=== PATIENT | male | born 1975 | race Hispanic/Latino ===

== ENCOUNTER 2018-07-29 23:48 | Emergency (ER) | payer SELFPAY ==
[2018-07-30 00:29] LABS: Absolute Lymphocytes (CBC) 1.7 K/uL (0.7-4.9); Absolute Monocytes 0.6 K/uL (0.1-1.3); Absolute Neutrophil 5.9 K/uL (1.8-8.0); Basophils % 0.6 % (0-1.3); Eosinophils % 3.2 % (0-4.4); Hematocrit 42.6 % (39.6-49.0); Lymphocytes % 19.4 % (15.3-44.8); MCH 33.3 pg (27.0-35.0); MCV 95.2 fL (80-100); Monocytes % 7.3 % (3.3-12.3); RBC Red Blood Cell Count 4.47 M/uL (4.33-5.43)
[2018-07-30] MEDS ORDERED: NA CHLORIDE 0.9% 1,000 ML ONE ×2 (00:32→02:35)
[2018-07-30] MEDS ORDERED: ONDANSETRON 4 MG/2 ML VIAL ONE (00:32)
[2018-07-30] MEDS ORDERED: MORPHINE 4 MG/ML SYR ONE (00:32)
[2018-07-30 00:45] LABS: Protime INR 1.01
[2018-07-30 00:49] LABS: BUN Blood Urea Nitrogen 16 mg/dL (7-18); Bicarbonate 23 mmol/L (21-32); Glucose Level 126 mg/dL (74-106); Sodium Level 140 mmol/L (136-145); Troponin I < 0.02 ng/mL (0.0-0.045)
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
[2018-07-30] MEDS ORDERED: CYCLOBENZAPRINE 10 MG TAB ONE (03:28)
[2018-07-30] MEDS ORDERED: HYDROCODONE/APAP 7.5/325 MG TAB ONE (03:29)
--- NOTE | 2018-07-30 10:22 | EKG ---
Test Date: 2018-07-30 Test Time: 00:41:22 Computer Numerical Control Programmer: LAILA MEASUREMENT RESULTS: Intervals: Rate: 85 RI: 144 QRSD: 94 QT: 412 QTc: 490 [place]: P: 61 RI: 144 QRS: 50 T: 69 INTERPRETIVE STATEMENTS: Normal sinus rhythm Prolonged QT Abnormal ECG No previous ECG available for comparison Electronically Signed On 07-30-18 10:21:17 CDT by Doroteo Guillory
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
== END 2018-07-30 03:59 | disposition home or self-care (01) ==
LOC: ER 23:48
DX: M25.532 Pain in left wrist (principal); M25.562 Pain in left knee; V49.59XA Passenger injured in collision with other motor vehicles in traffic accident, initial encounter; Z79.4 Long term (current) use of insulin; I10 Essential (primary) hypertension; E78.00 Pure hypercholesterolemia, unspecified; E11.9 Type 2 diabetes mellitus without complications; F17.210 Nicotine dependence, cigarettes, uncomplicated
CPT/HCPCS: 36415; 70450; 71045; 71250; 72125; 72170; 80048; 84484; 85025; 85610; 85730; 86850; 86900; 86901; 93005; 96361; 96374; 96375; 99285; J2405; J7030

== ENCOUNTER 2018-08-22 10:38 | Emergency (ER) | payer OTHER, SELFPAY ==
[2018-08-22] MEDS ORDERED: HYDROCODONE/APAP 7.5/325 MG TAB ONE (11:31)
[2018-08-22] MEDS ORDERED: IBUPROFEN 400 MG TAB ONE (11:31)
--- NOTE | 2018-08-22 11:51 | RAD REPORT ---
EXAM DESCRIPTION: RAD - Ankle Left 3 View - 08/22/2018 11:39 am CLINICAL HISTORY: Pain;Swelling COMPARISON: No comparisons FINDINGS: Prominent soft tissue swelling is seen about the ankle. No fracture or dislocation is seen . Small calcaneal spurs are present.
[2018-08-22] MEDS ORDERED: AMLODIPINE 5 MG TAB ONE (12:49)
[2018-08-22] MEDS ORDERED: cloNIDine HCl 0.1 MG TAB ONE (12:49)
--- NOTE | 2018-08-22 13:37 | ER ---
Nurse's Notes [facility] Name: Jean Pierre Anguiano Age: 43 yrs Sex: Male : 1975 Arrival Date: 08/22/2018 Time: 10:41 Bed 9 Private MD: None, None Diagnosis: Pain in left ankle and joints of left foot;Hypertensive heart disease Presentation: 08/22 10:48 Presenting complaint: Patient states: Left ankle pain since yesterday morning at 1000, jl7 denies trauma. Transition of care: patient was not received from another setting of care. Onset of symptoms was August 21, 2018. Risk Assessment: Do you want to hurt yourself or someone else? Patient reports no desire to harm self or others. Initial Sepsis Screen: Does the patient meet any 2 criteria? No. Patient's initial sepsis screen is negative. Does the patient have a suspected source of infection? No. Patient's initial sepsis screen is negative. Care prior to arrival: None. 10:48 Method Of Arrival: Wheelchair jl7 10:48 Acuity: AUBREY 3 jl7 Historical: - Allergies: 10:49 No Known Allergies; jl7 - PMHx: 10:49 Diabetes - NIDDM; High Cholesterol; Hypertension; Sleep Apnea; stroke; jl7 - PSHx: 10:49 None; jl7 - Immunization history:: Adult Immunizations not up to date. - Social history:: Smoking status: Patient uses tobacco products, smokes one-half pack cigarettes per day. - Ebola Screening: : No symptoms or risks identified at this time. Screenin:59 Abuse screen: Denies threats or abuse. Denies injuries from another. Nutritional iw screening: No deficits noted. Tuberculosis screening: No symptoms or risk factors identified. Fall Risk None identified. Assessment: 10:58 General: Appears in no apparent distress. comfortable, Behavior is calm, cooperative. iw Pain: Complains of pain in left medial ankle. Neuro: Level of Consciousness is awake, alert, obeys commands, Oriented to person, place, time, situation, Moves all extremities. Full function. Cardiovascular: Patient's skin is warm and dry. Respiratory: Respiratory effort is even, unlabored. GI: Abdomen is flat, non-distended. Derm: Skin is intact, is healthy with good turgor. Musculoskeletal: Range of motion: limited in left ankle Swelling present in left lateral ankle. 13:00 Reassessment: Patient appears in no apparent distress at this time. Patient and/or iw family updated on plan of care and expected duration. Pain level reassessed. Patient is alert, oriented x 3, equal unlabored respirations, skin warm/dry/pink. Vital Signs: 10:49 BP 176 / 124; Pulse 98; Resp 18 S; Temp 98.7(O); Pulse Ox 98% on R/A; Weight 95.25 kg jl7 (R); Height 5 ft. 6 in. (167.64 cm) (R); Pain 10/10; 12:26 BP 176 / 122; Pulse 97; Resp 18; Pulse Ox 98% on R/A; mh5 13:35 BP 169 / 98; Pulse 87; Resp 16; Pulse Ox 100% on R/A; iw 10:49 Body Mass Index 33.89 (95.25 kg, 167.64 cm) jl7 ED Course: 10:41 Patient arrived in ED. sb2 10:41 None, None is Private Physician. sb2 10:49 Triage completed. jl7 10:49 Arm band placed on right wrist. jl7 10:55 Kamaljit Ndiaye, RN is Primary Nurse. jl7 10:57 Primo Velazquez PA is PHCP. cp 10:57 Primo Clements MD is Attending Physician. cp 11:06 Angela Fall, EMMANUELLE is Primary Nurse. iw 11:06 Patient has correct armband on for positive identification. iw 11:37 X-ray completed. Portable x-ray completed in exam room. Patient tolerated procedure ag1 well. 11:39 XRAY Ankle LEFT 3 view In Process Unspecified. EDMS 12:32 Crutch training done. Silverio wrap to left ankle. mh5 13:52 No provider procedures requiring assistance completed. Patient did not have IV access iw during this emergency room visit. Administered Medications: 11:17 CANCELLED (Physician Discretion): Hydrocodone-Acetaminophen (7.5 mg-325 mg) 1 tabs PO cp once 11:25 Drug: Ibuprofen 800 mg Route: PO; iw 12:30 Follow up: Response: No adverse reaction; Pain is decreased iw 11:25 Drug: Hydrocodone-Acetaminophen (7.5 mg-325 mg) 1 tabs Route: PO; iw 12:30 Follow up: Response: No adverse reaction; Pain is decreased iw 12:43 Drug: cloNIDine 0.1 mg Route: PO; iw 13:40 Follow up: Response: No adverse reaction iw 12:43 Drug: amLODIPine 10 mg Route: PO; iw 13:40 Follow up: Response: No adverse reaction; Blood pressure is lowered iw Outcome: 13:37 Discharge ordered by . joey 13:52 Discharged to home ambulatory, with crutches. iw 13:52 Condition: good 13:52 Discharge instructions given to patient, Instructed on discharge instructions, follow up and referral plans. medication usage, Demonstrated understanding of instructions, follow-up care, medications, Prescriptions given X 4. 13:53 Patient left the ED. iw Signatures: Dispatcher [employer] EDMS Angela Fall RN RN Aster Smith ag1 Primo Velazquez PA PA cp Martinez, Maria [facility] Kamaljit Ndiaye RN RN jl7 Lexy Man sb2
--- NOTE | 2018-08-22 13:37 | EDPHYS ---
Physician Documentation [facility] Name: Jean Pierre Anguiano Age: 43 yrs Sex: Male : 1975 Arrival Date: 08/22/2018 Time: 10:41 Bed 9 Private MD: None, None ED Physician Primo Clements HPI: 08/22 11:20 This 43 yrs old Male presents to ER via Wheelchair with complaints of Leg Pain.cp 11:20 The patient presents with pain, that is acute, swelling, tenderness. The complaints cp affect the left ankle. Historical: - Allergies: 10:49 No Known Allergies; jl7 - PMHx: 10:49 Diabetes - NIDDM; High Cholesterol; Hypertension; Sleep Apnea; stroke; jl7 - PSHx: 10:49 None; jl7 - Immunization history:: Adult Immunizations not up to date. - Social history:: Smoking status: Patient uses tobacco products, smokes one-half pack cigarettes per day. - Ebola Screening: : No symptoms or risks identified at this time. ROS: 11:30 Constitutional: Negative for body aches, chills, fever, poor PO intake. cp 11:30 Eyes: Negative for injury, pain, redness, and discharge. cp 11:30 ENT: Negative for drainage from ear(s), ear pain, sore throat, difficulty swallowing, difficulty handling secretions. 11:30 Cardiovascular: Negative for chest pain, palpitations. 11:30 Respiratory: Negative for cough, shortness of breath, wheezing. 11:30 Abdomen/GI: Negative for abdominal pain, nausea, vomiting, and diarrhea. 11:30 MS/extremity: Positive for pain, swelling, tenderness, of the left ankle, Negative for injury or acute deformity, decreased range of motion, paresthesias. 11:30 Skin: Negative for cellulitis, rash. 11:30 All other systems are negative. Exam: 11:35 Constitutional: The patient appears in no acute distress, alert, awake, cp non-diaphoretic, non-toxic, well developed, well nourished. 11:35 Head/Face: Normocephalic, atraumatic. cp 11:35 Eyes: Periorbital structures: appear normal, Conjunctiva: normal, no exudate, no injection, Sclera: no appreciated abnormality, Lids and lashes: appear normal, bilaterally. 11:35 ENT: External ear(s): are unremarkable, Nose: is normal, Mouth: Lips: moist, Oral mucosa: pink and intact, moist, Posterior pharynx: is normal, airway is patent, no erythema, no exudate. 11:35 Neck: ROM/movement: is normal, is supple, without pain, no range of motions limitations, no nuchal rigidity. 11:35 Chest/axilla: Inspection: normal, Palpation: is normal, no crepitus, no tenderness. 11:35 Cardiovascular: Rate: normal, Rhythm: regular, Edema: is not appreciated. 11:35 Respiratory: the patient does not display signs of respiratory distress, Respirations: normal, no use of accessory muscles, no retractions, no splinting, no tachypnea, labored breathing, is not present, Breath sounds: are clear throughout, no decreased breath sounds, no stridor, no wheezing. 11:35 Abdomen/GI: Exam negative for discomfort, distension, guarding, Inspection: abdomen appears normal. 11:35 Back: pain, is absent, ROM is normal. 11:35 Musculoskeletal/extremity: Joints: All joints are normal except the left ankle displays painful range of motion, swelling, tenderness, DVT Exam: No signs of deep vein thrombosis. 11:35 Skin: cellulitis, is not appreciated, no rash present. 11:35 Neuro: Orientation: to person, place \T\ time. Mentation: is normal, Cerebellar function: is grossly normal, Motor: moves all fours, strength is normal, Sensation: no obvious gross deficits. Vital Signs: 10:49 BP 176 / 124; Pulse 98; Resp 18 S; Temp 98.7(O); Pulse Ox 98% on R/A; Weight 95.25 kg jl7 (R); Height 5 ft. 6 in. (167.64 cm) (R); Pain 10/10; 12:26 BP 176 / 122; Pulse 97; Resp 18; Pulse Ox 98% on R/A; mh5 13:35 BP 169 / 98; Pulse 87; Resp 16; Pulse Ox 100% on R/A; iw 10:49 Body Mass Index 33.89 (95.25 kg, 167.64 cm) jl7 MDM: 10:58 Patient medically screened. cp 11:30 Differential diagnosis: closed fracture, gout, sprain. cp 13:36 Data reviewed: vital signs, nurses notes, radiologic studies, plain films. cp 13:36 Test interpretation: by ED physician or midlevel provider: plain radiologic studies. cp Counseling: I had a detailed discussion with the patient and/or guardian regarding: the historical points, exam findings, and any diagnostic results supporting the discharge/admit diagnosis, radiology results, the need for outpatient follow up, a family practitioner, to return to the emergency department if symptoms worsen or persist or if there are any questions or concerns that arise at home. Response to treatment: the patient's symptoms have mildly improved after treatment, and as a result, I will discharge patient. 08/22 11:16 Order name: XRAY Ankle LEFT 3 view; Complete Time: 11:54 cp 08/22 11:54 Interpretation: Report reviewed. cp 08/22 11:56 Order name: Silverio wrap-joint; Complete Time: 12:33 cp 08/22 11:56 Order name: Crutches; Complete Time: 12:33 cp 08/22 11:56 Order name: Vital Signs: please update blood pressure; Complete Time: 12:33 cp Administered Medications: 11:17 CANCELLED (Physician Discretion): Hydrocodone-Acetaminophen (7.5 mg-325 mg) 1 tabs PO cp once 11:25 Drug: Ibuprofen 800 mg Route: PO; iw 12:30 Follow up: Response: No adverse reaction; Pain is decreased iw 11:25 Drug: Hydrocodone-Acetaminophen (7.5 mg-325 mg) 1 tabs Route: PO; iw 12:30 Follow up: Response: No adverse reaction; Pain is decreased iw 12:43 Drug: cloNIDine 0.1 mg Route: PO; iw 13:40 Follow up: Response: No adverse reaction iw 12:43 Drug: amLODIPine 10 mg Route: PO; iw 13:40 Follow up: Response: No adverse reaction; Blood pressure is lowered iw Disposition: 08/22/18 13:37 Discharged to Home. Impression: Pain in left ankle and joints of left foot, Hypertensive heart disease. - Condition is Stable. - Discharge Instructions: Hypertension, How to Take Your Blood Pressure, [id number], Ankle Pain, Managing Your Hypertension. - Prescriptions for Metoprolol Tartrate 100 mg Oral Tablet - take 1 tablet by ORAL route 2 times per day with a meal; 30 tablet. amlodipine 10 mg Oral tablet - take 1 tablet by ORAL route once daily; 20 tablet. ketorolac 10 mg Oral tablet - take 1 tablet by ORAL route every 6 hours As needed for ankle pain, not to exceed 40 mg in 24hrs; 15 tablet. Tramadol 50 mg Oral Tablet - take 1 tablet by ORAL route every 8 hours as needed. no driving while taking medication; 20 tablet. - Work release form, Medication Reconciliation Form, Thank You Letter, Antibiotic Education, Prescription Opioid Use form. - Follow up: Private Physician; When: 1 - 2 days; Reason: Recheck today's complaints. - Problem is new. - Symptoms have improved. Addendum: 08/25/2018 06:37 Co-signature as Attending Physician, Primo Clements MD I agree with the assessment and c dougherty plan of care. Signatures: Dispatcher [employer] EDPrimo Schuster MD MD cha Williams, Irene, RN RN Primo Haynes PA PA Kamaljit Portillo RN RN jl7 Corrections: (The following items were deleted from the chart) 08/22 11:17 11:17 Hydrocodone-Acetaminophen (7.5 mg-325 mg) 1 tabs PO once ordered. cp cp 13:53 13:37 08/22/2018 13:37 Discharged to Home. Impression: Pain in left ankle and joints of iw left foot; Hypertensive heart disease. Condition is Stable. Prescriptions for amlodipine 10 mg Oral tablet - take 1 tablet by ORAL route once daily; 20 tablet, Metoprolol Tartrate 100 mg Oral Tablet - take 1 tablet by ORAL route 2 times per day with a meal; 30 tablet. and Forms are Medication Reconciliation Form, Thank You Letter, Antibiotic Education, Prescription Opioid Use. Follow up: Private Physician; When: 1 - 2 days; Reason: Recheck today's complaints. Problem is new. Symptoms have improved. cp
== END 2018-08-22 13:53 | disposition home or self-care (01) ==
LOC: ER 10:38
DX: M25.572 Pain in left ankle and joints of left foot (principal); I11.9 Hypertensive heart disease without heart failure
CPT/HCPCS: 99284